=== PATIENT | female | born 1985 | race American Indian/Alaskan Native ===

== ENCOUNTER 2018-02-15 09:40 | Emergency (ER) | payer OTHER ==
--- NOTE | 2018-02-15 12:43 | Emergency Department Report ---
HPI - General Chief Complaint: Abdominal Pain Time Seen by Provider: 02/15/18 12:35 - HPI HPI: Patient is a 32-year-old female was brought from 19 weeks who is presenting with some dysuria and urinary frequency and has not felt the baby move for several days. Bedside ultrasound done by me which showed heart rate in the 150s and good movement. Patient also complained of lower abdominal pain . Pain is 6 out of 10, intermittent and crampy. No medication taken for pain. Denies any nausea vomiting. She says she spotted some a couple days ago but that has resolved. Denies any fever or chills. Denies any back pain. No alleviating or exacerbating factors. ED Past Medical Hx - Past Medical History Previous Medical History?: No - Surgical History Past Surgical History?: No - Family History Family history: hypertension - Social History Smoking Status: Never Smoker Substance Use Type: None - Medications Home Medications: Home Medications Medication Instructions Recorded Confirmed Last Taken Type Nitrofurantoin Monohyd/M-Cryst 100 mg PO BID #14 capsule 02/15/18 Unknown Rx [Macrobid 100 mg Capsule] Phenazopyridine [Pyridium] 100 mg PO TID #6 tab 02/15/18 Unknown Rx ED Review of Systems ROS: Stated complaint: /ABD/HEAD PAIN Other details as noted in HPI Constitutional: denies: chills, fever ENT: denies: congestion Respiratory: denies: cough, shortness of breath, SOB with exertion, SOB at rest , wheezing Cardiovascular: denies: chest pain, palpitations, edema, syncope Gastrointestinal: abdominal pain. denies: nausea, vomiting, diarrhea Genitourinary: dysuria, other (vaginal spotting that has resolved). denies: urgency, discharge Musculoskeletal: denies: back pain, joint swelling, arthralgia, myalgia Skin: denies: rash, lesions Neurological: denies: headache, weakness, abnormal gait, vertigo Physical Exam - Physical Exam Vital Signs: Vital Signs 02/15/18 09:48 Temperature 97.4 F L Pulse Rate 83 Blood Pressure 108/75 O2 Sat by Pulse 100 Oximetry Temp Pulse Resp BP Pulse Ox 97.4 F L 78 18 112/76 98 02/15/18 09:48 02/15/18 14:05 02/15/18 14:05 02/15/18 14:05 02/15/18 14:05 General: This is a 32-year-old female well-nourished well-developed in no acute distress. Physical Exam: Head: Normocephalic atraumatic. Scalp examination and normal. Nontender to palpate. No abrasion, contusion or hematoma noted. Mouth: Oral mucosa moist, tongue is normal, uvula is midline, no [employer] or drooling , oral airways patent and uvula is Lungs: Clear to auscultated bilaterally, no rhonchi wheezes or rales. No use of accessory muscles. No chest wall tenderness CV: S1, S2. Regular rate rhythm negative murmur. Skin: Clean dry and intact, no rash or lesions. Abdomen: Nontender to palpate. Normal bowel sounds, protruding from , no guarding or rebound tenderness. No CVA tenderness Extremity: No cce. + 2 pulses in all extremities, no neurovascular compromise.No laceration, bruises then or contusion noted to extremities. Negative Homans signs bilaterally. No palpable cord bilateral lower extremity. Musculoskeletal: Full Range of motion in all extremities, no joint crepitus, erythema or effusion. Skin: Clean dry and intact, no rashes no lesions Mood: Normal mood and behavior ED Course Vital Signs 02/15/18 09:48 Temperature 97.4 F L Pulse Rate 83 Blood Pressure 108/75 O2 Sat by Pulse 100 Oximetry - Reevaluation(s) Reevaluation #1: 02/15/18 19:46 Patient had an uneventful ED stay. ED Medical Decision Making - Lab Data Lab Results 02/15/18 Range/Units Unknown Urine Color Yellow (Yellow) Urine Turbidity Clear (Clear) Urine pH 7.0 (5.0-7.0) Ur Specific [place] 1.017 (1.003-1.030) Urine Protein <15 mg/dl (Negative) mg/dL Urine Glucose (UA) Neg (Negative) mg/dL Urine Ketones Neg (Negative) mg/dL Urine Blood Neg (Negative) Urine Nitrite Neg (Negative) Urine Bilirubin Neg (Negative) Urine Urobilinogen < 2.0 (<2.0) mg/dL Ur Leukocyte Esterase Sm (Negative) Urine WBC (Auto) 1.0 (0.0-6.0) /HPF Urine RBC (Auto) 2.0 (0.0-6.0) /HPF U Epithel Cells (Auto) 1.0 (0-13.0) /HPF Urine Bacteria (Auto) 1+ (Negative) /HPF Urine Mucus Few /HPF Urine culture sent - Radiology Data Bedside ultrasound was done by Dr. Dangelo Hodge who reports that ultrasound shows heart tone and 150s and positive movement. - Medical Decision Making This is a 32-year-old female here report that she is 19 weeks and she had spotting 2 days ago that has resolved but she is having some lower abdominal cramping and urinary symptoms to include frequency and dysuria and she is here to be evaluated. Bedside ultrasound done by Dr. Dangelo Hodge was the attending physician and he reports fetus with good movement and heart rate is in the 150s. Patient was discharged by Dr. Dangelo Hodge on Pyridium and Macrobid. Assessment/plan Acute cystitis in Abdominal pain and Patient discharged home with prescription for Macrobid and Pyridium and to follow-up in 3-5 days. - Differential Diagnosis demise, threatened miscarriage, acute cystitis Critical care attestation.: If time is entered above; I have spent that time in minutes in the direct care of this critically ill patient, excluding procedure time. ED Disposition Clinical Impression: Acute cystitis during Qualifiers: Trimester: second trimester Qualified Code(s): O23.12 - Infections of bladder in , second trimester Disposition: DC-01 TO HOME OR SELFCARE Is pt being admited?: No Does the pt Need Aspirin: No Condition: Stable Instructions: Urinary Tract Infection in Women (ED) Prescriptions: Nitrofurantoin Monohyd/M-Cryst [Macrobid 100 mg Capsule] 100 mg PO BID #14 capsule Phenazopyridine [Pyridium] 100 mg PO TID #6 tab Referrals: PRIMARY CARE, [Primary Care Provider] - 3-5 Days
--- NOTE | 2018-02-15 13:10 | Emergency Department Report ---
Blank Doc - Documentation Documentation: Patient is a 32-year-old female was brought from 19 weeks who is presenting with some dysuria and urinary frequency and has not felt the baby move for several days. Bedside ultrasound done by me which showed heart rate in the 150s and good movement. Patient will have a urinalysis performed.
[2018-02-15 13:22] LABS: Bacteria,Urine 1+ /HPF (Negative); Bilirubin,Urine NEG (Negative); Blood,Urine NEG (Negative); Color,Urine Yellow (Yellow); Mucus,Urine FEW /HPF; Protein,Urine <15 mg/dL mg/dL (Negative); Urobilinogen,Urine < 2.0 mg/dL (<2.0)
[2018-02-15 14:06] VITALS: BP 112/76
== END 2018-02-15 14:05 | disposition home or self-care (01) ==
LOC: ED 09:40
DX: O23.12 Infections of bladder in pregnancy, second trimester (principal); Z3A.19 19 weeks gestation of pregnancy
CPT/HCPCS: 81001; 99283